=== PATIENT | female | born 1960 | race Caucasian/White ===

== ENCOUNTER → 2016-11-10 | Outpatient (CLI) | payer BC ==
[~2016-11-10] MED LIST: FLUO40CA8 PO; MISCCAP80; TAMS0.4C59 PO
== END ==
LOC: C.PAPS 10:55
PROVIDERS: ATTEND Obstetrics & Gynecology
DX: Z01.419 Encounter for gynecological examination (general) (routine) without abnormal findings (principal)

== ENCOUNTER → 2016-11-10 | Outpatient (CLI) | payer BC ==
--- NOTE | 2016-11-10 13:16 | MAMMOGRAPHY REPORT ---
BILATERAL DIGITAL SCREENING MAMMOGRAM TOMOSYNTHESIS WITH CAD: 11/10/2016 CLINICAL HISTORY: Routine screening. Patient has no complaints. TECHNIQUE: Breast tomosynthesis in addition to standard 2D mammography was performed. Current study was also evaluated with a Computer Aided Detection (CAD) system. COMPARISON: Comparison is made to exams dated: 10/08/2015 mammogram, 09/25/2014 mammogram, 07/11/2013 ma mmogram, 07/05/2012 mammogram, 06/30/2011 mammogram, and 06/23/2010 mammogram - [facility] nter. BREAST COMPOSITION: The tissue of both breasts is almost entirely fatty. FINDINGS: No suspicious masses, calcifications, or areas of architectural distortion are noted in ei ther breast. There has been no significant interval change compared to prior exams. IMPRESSION: ACR BI-RADS CATEGORY 1: NEGATIVE There is no mammographic evidence of malignancy. A 1 year screening mammogram is recommended. The pa tient will receive written notification of the results. Approximately 10% of breast cancers are not detected with mammography. A negative mammographic report should not delay biopsy if a clinically suggestive mass is present. Carmencita Gallagher M.D. ah/:11/10/2016 09:01:42 Research Program Assistant: Susana PATEL(R)(M), [facility] letter sent: Normal 1/2 BI-RADS Code: ACR BI-RADS Category 1: Negative
== END ==
LOC: C.MAMM 07:57
PROVIDERS: ATTEND Obstetrics & Gynecology
DX: Z12.31 Encounter for screening mammogram for malignant neoplasm of breast (principal)

== ENCOUNTER 2022-09-18 11:13 | Observation (INO) ==
[2022-09-18] MEDS ORDERED: ONDANSETRON INJ 2 MG/ML 2 ML VIAL IV STA (11:30)
[2022-09-18] MEDS ORDERED: SODIUM CHLORIDE 0.9% 1000ML 1,000 ML IV ONE (11:30)
[2022-09-18] MEDS ORDERED: MoRPHine SULFATE 4 MG/ML 1 ML CARP\\VIAL IV STA (11:39)
--- NOTE | 2022-09-18 11:39 | Emergency Department Note ---
Impression & Plan Diverticulitis, Abdominal pain ED Provider Note NAME: LUAN Serrano ATCO AGE: 62 SEX: F : 1960 ARRIVES VIA: Walk-In INFORMANT: Patient ED PROVIDER(S): Madhu Hendricks DO CHIEF COMPLAINT: abdominal pain HPI: Patient is a 62-year-old female with past medical history of cholecys tectomy, reflux who presents to the ER for left mid abdominal pain. Associated with nausea and vomiting. She is also having diarrhea. Vomiting stopped last night. Pain started last night around 12 in the morning. She denies any headache or change in vision. No chest pain or shortness of breath. No dysuria, urgency, or frequency. No other exacerbating or remitting factors. She was here back in July for something similar which ended up being diverticulitis. PAST MEDICAL HISTORY:See Below PAST SURGICAL HISTORY:See Below FAMILY HISTORY:See Below SOCIAL HISTORY:See Below HOME MEDICATIONS:See Below ALLERGIES:See Below VITALS:See Below PHYSICAL EXAMINATION: GENERAL: Sitting up in bed, alert, well appearing, well nourished, no distress, non-toxic EYE EXAM: normal conjunctiva. OROPHARYNX: no exudate, no erythema, lips, buccal mucosa, and tongue normal and mucous membranes are moist NECK: supple, no nuchal rigidity, no adenopathy, non-tender LUNGS: Clear to auscultation. Normal chest wall mechanics HEART: no murmurs, S1 normal and S2 normal ABDOMEN: abdomen soft, mild tenderness palpation left mid abdomen, normo-active bowel sounds, no masses, no rebound or guarding. BACK: Back is symmetrical on inspection and there is no deformity, no midline tenderness, no CVA tenderness. SKIN: no rashes and no bruising UPPER EXTREMITIES: upper extremities are grossly normal. LOWER EXTREMITIES: No pitting edema. NEURO EXAM: Normal sensorium, cranial nerves II-XII grossly intact, normal speech, no gross weakness of arms, no gross weakness of legs. MEDICAL DECISION MAKING: Patient is a 60-year-old female who presents ER for above-stated complaint. IV was established blood work was obtained. External records reviewed. Labs show no significant leukocytosis or anemia. BMP along with LFTs bilirubin and lipase is unremarkable. UA was clean. CT abdomen pelvis shows diverticulitis. Patient had persistent abdominal pain following multiple doses of morphine. Patient was given IV fluids and Zofran. Patient was updated at bedside and discharged to follow-up with PCP as an outpatient. Discussed with Pt concerning signs and symptoms to watch out for. Pt was instructed to follow up with their PCP and discussed with the patient their option to return to the ED at anytime for persistent or worsening symptoms. The appropriate anticipatory guidance and out-patient management, including indications for return to the emergency department, were explained at length to the patient and understood. Triage Nursing notes reviewed. Limited review of prior medical records performed Vital Signs: reviewed and remarkable for no significant abnormalities Differential diagnosis: Differential diagnoses includes but is not limited to gastritis, peptic ulcer disease, GERD, gallbladder disease, pancreatitis, small bowel obstruction, appendicitis, diverticulitis, hernia, urinary tract infection, torsion, perforation, trauma, infectious. ER treatment provided: See below Diagnostics interpreted by me include EKG and cardiac monitoring as listed below: -Cardiac Monitoring: An order was placed for continuous cardiac monitoring. The monitor shows a rate of 80 with sinus rhythm. -ECG: none -Laboratory studies:Interpreted by me as stated above in MDM and shown below. Imaging studies: Xrays: As interpreted by me:none CTs show: CT abdomen pelvis showed no obvious obstruction per my read CT abdomen pelvis per radiology showed diverticulitis Consultation(s): As described in MDM Procedures:none Critical Care: None Past Med/Surg History Medical History (Updated 09/18/22 @ 15:59 by Madhu Hendricks DO) Anxiety Deviated septum Dysfunction of eustachian tube History of colon polyps History of kidney stones History of syncope 2018; unk etiology, possibly vasovagal; no issues since (saw cardio Dr. [place]). Loop recorder was planned but patient ultimately decided not to have it placed as she had no further episodes. Hot flashes Hypoperfusion of brain Obesity Perimenopausal vasomotor symptoms Surgical History H/O colonoscopy (08/04/12) COLONOSCOPY FLEXIBLE PROXIMAL DIAGNOSTIC performed by Caprice Campos DO at [facility], HYPERPLASTIC POLYPS REPEAT COLONOSCOPY IN 5 YEARS H/O colonoscopy (01/13/18) diverticulosis, repeat 5 yrs/COLONOSCOPY FLEXIBLE PROXIMAL DIAGNOSTIC performed by Caprice Campos DO at [facility] History of cystoscopy History of endometrial ablation 2009 History of esophagogastroduodenoscopy (EGD) (04/22/20) ESOPHAGOGASTRODUODENOSCOPY (EGD), FLEXIBLE, TRANSORAL, DIAGNOSTIC performed by Rsoa Carrasquillo MD at [facility] With EUS History of knee surgery Lt knee cyst 1992 History of lithotripsy History of removal of ureteral stent History of tonsillectomy and adenoidectomy History of ureter stent S/P laparoscopic cholecystectomy (06/03/20) Laparoscopic Cholecystectomy with Intraoperative Cholangiogram - Angel Abarca MD, FACS Family History Mother Clotting disorder Hypertension Father Prostate cancer History of anesthesia reaction hypotension Aunt Colorectal cancer Cancer Grandmother Diabetes Heart disease Other Bladder cancer Nephrolithiasis, uric acid Social History Smoking Status: Never smoker Second Hand Exposure: No; Do You Dip or Chew Tobacco: No; Hx Alcohol Use: Yes Hx Substance Use: No Preferred Language: Japanese Communication Ability: Effective Physician Anesthesiologist Required: No Beliefs That Will Affect Care: None marital status: Current Living Situation: Spouse Current Living Situation Comment: mother and dtr also live with pt current occupational status: employed 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 How many Children do You have: 2 Feels Safe at Home: Yes Assistive Devices: Contacts and Glasses Allergies Allergies Allergy/AdvReac Type Severity Reaction Status Date / Time adhesive Allergy Mild BANDAIDS - Verified 08/27/22 08:17 RED SKIN Home Meds Home Medications Medication Instructions Recorded Confirmed cholecalciferol (vitamin D3) 50 2,000 units PO HS 08/29/18 09/18/22 mcg (2,000 unit) capsule diclofenac sodium 75 mg 75 mg PO HS 09/08/18 09/18/22 tablet,delayed release alprazolam 0.25 mg tablet 0.25 mg PO DAILY PRN Anxiety 04/25/20 09/18/22 biotin 10 mg tablet 10 mg PO HS 04/25/20 09/18/22 lutein 20 mg tablet 20 mg PO HS 04/25/20 09/18/22 sertraline 100 mg tablet 100 mg PO HS 09/18/22 09/18/22 Results & Data (ED) Vital Signs Vital Signs - 24 hr 09/18/22 11:24 09/18/22 12:08 09/18/22 12:37 Temperature 36.6 C Temperature Source Temporal Artery Scan Pulse Rate 76 65 Pulse Rate [Right Finger] 59 L Pulse Rhythm Regular Pulse Strength Normal Respiratory Rate 18 17 Respiratory Effort / Characteristics Non-Labored Spontaneous Non-Labored Spontaneous Respiratory Depth Normal Normal Respiratory Pattern Regular Blood Pressure 105/73 Blood Pressure [Left Arm] 111/80 Blood Pressure Mean 83 Blood Pressure Mean [Left Arm] 90 Blood Pressure Position Sitting Blood Pressure Position [Left Arm] Lying Pulse Oximetry 96 98 Oxygen Delivery Method Room Air Room Air Sepsis Recent Fever Within 48 Hours No Sepsis New/Unexplained Change in Mental Status No Sepsis Action Taken by Nursing No Action Required 09/18/22 12:37 Temperature Temperature Source Pulse Rate 59 L Pulse Rate [Right Finger] Pulse Rhythm Pulse Strength Respiratory Rate 17 Respiratory Effort / Characteristics Respiratory Depth Respiratory Pattern Blood Pressure Blood Pressure [Left Arm] Blood Pressure Mean Blood Pressure Mean [Left Arm] Blood Pressure Position Blood Pressure Position [Left Arm] Pulse Oximetry 98 Oxygen Delivery Method Room Air Sepsis Recent Fever Within 48 Hours Sepsis New/Unexplained Change in Mental Status Sepsis Action Taken by Nursing Laboratory Data 09/18/22 11:30 09/18/22 11:30 Lab Results 09/18/22 09/18/22 09/18/22 Range/Units 11:30 11:30 12:30 WBC 6.89 (4.8-10.8) K/ul RBC 4.74 (4.20-5.40) M/uL Hgb 14.4 (12.0-16.0) g/dl Hct 41.8 (37.0-47.0) % MCV 88.2 (80.0-100.0) fL MCH 30.4 (25.0-34.0) pg MCHC 34.4 (32.0-36.0) g/dL RDW Std Deviation 43.3 (36.4-46.3) fL RDW Coeff of Bertha 13.2 (11.5-14.5) % Plt Count 303 (130-400) K/uL MPV 10.1 (9.4-12.4) fL Immature Gran % (Auto) 0.3 % Neut % (Auto) 67.9 % Lymph % (Auto) 23.7 % [place] % (Auto) 7.1 % Eos % (Auto) 0.6 % Baso % (Auto) 0.4 % Neut # (Auto) 4.68 (1.40-6.50) K/uL Lymph # (Auto) 1.63 (1.2-3.4) K/uL [place] # (Auto) 0.49 (0.11-0.59) K/uL Eos # (Auto) 0.04 (0-0.50) K/uL Baso # (Auto) 0.03 (0-0.2) K/uL Immature Gran # (Auto) 0.02 (0.01-0.20) K/uL Sodium 141 (136-145) mmol/L Potassium 4.3 (3.5-5.1) mmol/L Chloride 107 (98-107) mmol/L Carbon Dioxide 26 (21-32) mmol/L Anion Gap 8 (3-11) BUN 16 (6-23) mg/dl Creatinine 0.87 (0.6-1.2) mg/dl Est Cr Clr Drug Dosing 69.1 ml/min Est GFR ( Amer) 82.8 ml/min Est GFR (Non-Af Amer) 71.4 ml/min BUN/Creatinine Ratio 18.4 (10-20) Glucose 117 H (70-99(Fasting)) mg/dl Calcium 9.4 (8.6-10.3) mg/dl Total Bilirubin 0.4 (0.2-1.0) mg/dl AST 21 (13-39) U/L ALT 28 (7-52) U/L Alkaline Phosphatase 74 (34-104) U/L Troponin I High Sens (0-14) pg/ml Total Protein 7.1 (6.0-8.3) gm/dl Albumin 4.1 (3.4-5.0) gm/dl Globulin 3.0 (2.5-4.0) gm/dl Albumin/Globulin Ratio 1.4 (0.9-2) Lipase 15 (11-82) U/L Urine Color Yellow Urine Appearance Clear (Clear) Urine pH 7.0 (4.5-7.5) Ur Specific [place] 1.013 (1.000-1.030) Urine Protein Negative (Negative) Urine Glucose (UA) Negative (Negative) Urine Ketones Negative (Negative) Urine Blood Negative (Negative) Urine Nitrite Negative (Negative) Urine Bilirubin Negative (Negative) Urine Urobilinogen Negative (Negative) Ur Leukocyte Esterase Negative (Negative) 09/18/22 Range/Units 14:22 WBC (4.8-10.8) K/ul RBC (4.20-5.40) M/uL Hgb (12.0-16.0) g/dl Hct (37.0-47.0) % MCV (80.0-100.0) fL MCH (25.0-34.0) pg MCHC (32.0-36.0) g/dL RDW Std Deviation (36.4-46.3) fL RDW Coeff of Bertha (11.5-14.5) % Plt Count (130-400) K/uL MPV (9.4-12.4) fL Immature Gran % (Auto) % Neut % (Auto) % Lymph % (Auto) % [place] % (Auto) % Eos % (Auto) % Baso % (Auto) % Neut # (Auto) (1.40-6.50) K/uL Lymph # (Auto) (1.2-3.4) K/uL [place] # (Auto) (0.11-0.59) K/uL Eos # (Auto) (0-0.50) K/uL Baso # (Auto) (0-0.2) K/uL Immature Gran # (Auto) (0.01-0.20) K/uL Sodium (136-145) mmol/L Potassium (3.5-5.1) mmol/L Chloride (98-107) mmol/L Carbon Dioxide (21-32) mmol/L Anion Gap (3-11) BUN (6-23) mg/dl Creatinine (0.6-1.2) mg/dl Est Cr Clr Drug Dosing ml/min Est GFR ( Amer) ml/min Est GFR (Non-Af Amer) ml/min BUN/Creatinine Ratio (10-20) Glucose (70-99(Fasting)) mg/dl Calcium (8.6-10.3) mg/dl Total Bilirubin (0.2-1.0) mg/dl AST (13-39) U/L ALT (7-52) U/L Alkaline Phosphatase (34-104) U/L Troponin I High Sens 3.1 (0-14) pg/ml Total Protein (6.0-8.3) gm/dl Albumin (3.4-5.0) gm/dl Globulin (2.5-4.0) gm/dl Albumin/Globulin Ratio (0.9-2) Lipase (11-82) U/L Urine Color Urine Appearance (Clear) Urine pH (4.5-7.5) Ur Specific [place] (1.000-1.030) Urine Protein (Negative) Urine Glucose (UA) (Negative) Urine Ketones (Negative) Urine Blood (Negative) Urine Nitrite (Negative) Urine Bilirubin (Negative) Urine Urobilinogen (Negative) Ur Leukocyte Esterase (Negative) Administered Medications Famotidine 20 mg/ Syringe 5 mls @ 2.5 mls/min IV BID ERIN Stop: 10/18/22 13:59 Last Admin: 09/18/22 15:07 Dose: 2.5 mls/min Documented By: MUNDO Discontinued Medications Sodium Chloride (Nss 1000ml) 1,000 mls @ 999 mls/hr IV .Q1H1M ONE Stop: 09/18/22 12:30 Last Infusion: 09/18/22 13:43 Dose: 0 mls/hr Documented By: Admin: 09/18/22 11:54 Dose: 999 mls/hr Documented By: MUNDO Piperacillin Sod/Tazobactam Sod (Zosyn) 4.5 gm in 120 mls @ 240 mls/hr IV NOW ONE Stop: 09/18/22 13:54 Last Infusion: 09/18/22 15:22 Dose: 0 mls/hr Documented By: Admin: 09/18/22 14:17 Dose: 240 mls/hr Documented By: MUNDO Ioversol (Optiray 320 100ml) 94 ml IV ONCE ONE Stop: 09/18/22 12:17 Last Admin: 09/18/22 12:16 Dose: 94 ml Documented By: RASHIDA Morphine Sulfate (Morphine Sulfate 4 Mg/Ml 1 Ml Carp\Vial) 4 mg IV NOW STA Stop: 09/18/22 11:40 Last Admin: 09/18/22 11:53 Dose: 4 mg Documented By: MUNDO Morphine Sulfate (Morphine Sulfate 10 Mg/Ml Carp/Vial) 6 mg IV NOW STA Stop: 09/18/22 13:00 Last Admin: 09/18/22 13:14 Dose: 6 mg Documented By: MUNDO Ondansetron HCl (Ondansetron Inj 2 Mg/Ml 2 Ml Vial) 4 mg IV NOW STA Stop: 09/18/22 11:31 Last Admin: 09/18/22 11:54 Dose: 4 mg Documented By: [facility] Imaging Data Radiologist's Impression: Abdomen/Pelvis CT 09/18/22 11:[address] WITH IV CONTRAST CT DOSE: 1315.43 mGy.cm HISTORY: l mid abd pain going to back TECHNIQUE: Multiaxial CT images of the abdomen and pelvis were performed following the use of intravenous contrast. A dose lowering technique was u tilized adhering to the principles of ALARA. COMPARISON STUDY: Abdomen and pelvis CT 07/27/2022. FINDINGS: Punctate calcified granuloma within the left lower lobe. No pneumoperitoneum. No pneumatosis. No acute fractures identified. There is a tiny hiatus hernia. There is a tiny fat-containing umbilical hernia. Cholecystectomy. The main portal vein is patent. The liver, spleen, adrenal glands, and pancreas are unremarkable. There is a punctate stone within the right kidney. Stable left renal hypodense lesions. These favor cysts. No hydronephrosis. No retroperitoneal lymphadenopathy. There is a duplicated IVC. No pelvic free fluid or pelvic lymphadenopathy. The bladder, uterus, and bilateral adnexa are unremarkable. Tiny fat-containing umbilical hernias are noted. Colonic diverticulosis. Mild fat stranding adjacent to a single diverticula within the proximal sigmoid colon on image 258. This is consistent with a mild acute diverticulitis. No perforation or abscess identified. No evidence for bowel obstruction. Normal appendix. IMPRESSION: 1. Mild acute sigmoid diverticulitis. No perforation or abscess. 2. Right-sided nephrolithiasis. No ureteral stones. No hydronephrosis. 3. Normal appendix. 4. Cholecystectomy. ACT 112: Negative or not required by law. Electronically signed by: Miguel Jimenez M.D. 09/18/2022 1:16 PM Discharge Plan Visit Data Chief Complaint: Abdominal Pain Stated Complaint: ABD PAIN RADIATING IN BACK ED Provider: Madhu Hendricks Discharge Problem: Diverticulitis, Abdominal pain Forms Stand Alone Forms: [email or web address] Prescriptions Prescriptions: No Action alprazolam 0.25 mg tablet 0.25 mg PO DAILY PRN (Reason: Anxiety) lutein 20 mg tablet 20 mg PO HS Rx Instructions: give with meal/snack biotin 10 mg tablet 10 mg PO HS cholecalciferol (vitamin D3) 2,000 unit capsule 2,000 units PO HS diclofenac sodium 75 mg tablet,delayed release (DR/EC) 75 mg PO HS sertraline 100 mg tablet 100 mg PO HS Referrals Referrals: Cecilia Fried DO [Primary Care Provider] -
[2022-09-18 12:02] LABS: Basophils # (auto) 0.03 K/uL (0-0.2); Basophils % (auto) 0.4 %; Eosinophils # (auto) 0.04 K/uL (0-0.50); Eosinophils % (auto) 0.6 %; Hematocrit (blood only) 41.8 % (37.0-47.0); Hemoglobin 14.4 g/dl (12.0-16.0); Immature Granulocytes # (auto) 0.02 K/uL (0.01-0.20); Immature Granulocytes % (auto) 0.3 %; Lymphocytes # (auto) 1.63 K/uL (1.2-3.4); Lymphocytes % (auto) 23.7 %; Mean Corpuscular Hemoglobin 30.4 pg (25.0-34.0); Mean Corpuscular Hgb Conc 34.4 g/dL (32.0-36.0); Mean Corpuscular Volume 88.2 fL (80.0-100.0); Mean Platelet Volume 10.1 fL (9.4-12.4); Monocytes # (auto) 0.49 K/uL (0.11-0.59); Monocytes % (auto) 7.1 %; Neutrophils # (auto) 4.68 K/uL (1.40-6.50); Neutrophils % (auto) 67.9 %; Platelet Count 303 K/uL (130-400); RDW Coefficient of Variation 13.2 % (11.5-14.5); RDW Standard Deviation 43.3 fL (36.4-46.3); Red Blood Count 4.74 M/uL (4.20-5.40); White Blood Count 6.89 K/ul (4.8-10.8)
[2022-09-18 12:15] LABS: Albumin Globulin Ratio 1.4 (0.9-2); Albumin Level 4.1 gm/dl (3.4-5.0); BUN Creatinine Ratio 18.4 (10-20); Bilirubin,Total 0.4 mg/dl (0.2-1.0); Calcium 9.4 mg/dl (8.6-10.3); Creatinine Clr Calc Pharmacy 69.1 ml/min; Est GFR (African American) 82.8 ml/min; Est GFR (Non-African American) 71.4 ml/min; Potassium 4.3 mmol/L (3.5-5.1); Total Protein 7.1 gm/dl (6.0-8.3)
[2022-09-18] MEDS ORDERED: OPTIRAY 320 100ml IV ONE (12:16)
[2022-09-18 12:48] LABS: Appearance Urine Clear (Clear); Bilirubin Urine Negative (Negative); Blood Urine Negative (Negative); Color Urine Yellow; Glucose Urine UA Negative (Negative); Ketones Urine Negative (Negative); Leukocyte Esterase Urine Negative (Negative); Nitrite Urine Negative (Negative); Protein Urine Negative (Negative); Specific Gravity Urine 1.013 (1.000-1.030); Urobilinogen Urine Negative (Negative)
[2022-09-18] MEDS ORDERED: MoRPHine SULFATE 10 MG/ML CARP/VIAL IV STA ×2 (12:59→13:24)
--- NOTE | 2022-09-18 13:18 | CT Scan Report ---
ABDOMEN AND PELVIS CT WITH IV CONTRAST CT DOSE: 1315.43 mGy.cm HISTORY: l mid abd pain going to back TECHNIQUE: Multiaxial CT images of the abdomen and pelvis were performed following the use of intrave nous contrast. A dose lowering technique was utilized adhering to the principles of ALARA. COMPARISON STUDY: Abdomen and pelvis CT 07/27/2022. FINDINGS: Punctate calcified granuloma within the left lower lobe. No pneumoperitoneum. No pneumatosi s. No acute fractures identified. There is a tiny hiatus hernia. There is a tiny fat-containing umbil ical hernia. Cholecystectomy. The main portal vein is patent. The liver, spleen, adrenal glands, and pancreas are unremarkable. There is a punctate stone within the right kidney. Stable left renal hypod ense lesions. These favor cysts. No hydronephrosis. No retroperitoneal lymphadenopathy. There is a du plicated IVC. No pelvic free fluid or pelvic lymphadenopathy. The bladder, uterus, and bilateral adne xa are unremarkable. Tiny fat-containing umbilical hernias are noted. Colonic diverticulosis. Mild fa t stranding adjacent to a single diverticula within the proximal sigmoid colon on image 258. This is consistent with a mild acute diverticulitis. No perforation or abscess identified. No evidence for galdino wel obstruction. Normal appendix. IMPRESSION: 1. Mild acute sigmoid diverticulitis. No perforation or abscess. 2. Right-sided nephrolithiasis. No ureteral stones. No hydronephrosis. 3. Normal appendix. 4. Cholecystectomy. ACT 112: Negative or not required by law. Electronically signed by: Miguel Jimenez M.D. 09/18/2022 1:16 PM
[2022-09-18] MEDS ORDERED: PIPERACILLIN/TAZOBACTAM 4.5 GM/120 ML BAG IV ONE (13:25)
--- NOTE | 2022-09-18 13:51 | History & Physical Report ---
Date of Service September 18, 2022 Assessment & Plan (1) Sigmoid diverticulitis: (2) Esophageal reflux: (3) Anxiety: (4) Sleep apnea: Plan This is a 62yo with PMH of diverticulitis, anxiety and other medical problems who presents after sudden onset of severe left sided abdomen and was found to have mild acute sigmoid diverticulitis. Acute sigmoid diverticulitis N/V and left sided abdominal pain since midnight Previous bout of diverticulitis in July 2022, treated with PO abx Afebrile, hemodynamically stable, no leukocytosis, no acute bleeding with hgb 14.4 CT abd/pelvis with mild acute sigmoid diverticulitis. No perforation or abscess. Right-sided nephrolithiasis. No ureteral stones. No hydronephrosis. Normal appendix. Cholecystectomy Started on Zosyn, continue for now Clear liquids, antiemetics, pain control, adding stool cultures and c diff Epigastric discomfort Upper abdominal pain extending to chest wall Lipase WNL Expect GI related, adding pepcid BID EKG and troponin pending to rule out cardiac cause Anxiety Continue Zoloft HS DVT Ppx: SQ lovenox Code status: FULL PCP: Corky Dispo:Observation med/surg Patient seen in collaboration with Dr. Cheung. Please see addendum. History of Present Illness Chief Complaint: abd pain, N/V Primary Care Provider: Cecilia Fried, DO This is a 62yo with PMH of diverticulitis, anxiety and other medical problems who presents after sudden onset of severe left sided abdomen that woke her up around midnight. Describes pain as sharp and constant left sided pain radiating into back and shoulder with associated nausea. Feels like pain may be due to gas. Also with associated nausea. Vomited at home prior to arrival even after taking Zofran. No hematemesis. No additional vomiting since arrival and symptoms improved with morphine in ED. Had multiple bouts of diarrhea between midnight and presentation but seems have stopped now. No hematochezia. No F,C, lightheadedness, SOB, dysuria or constipation. Has been under a lot of stress caring for her elderly mother. Recently had bout of diverticulitis but resolved with outpatient antibiotics. Pain more severe this time. No recent medication changes. Allergies Allergy/AdvReac Type Severity Reaction Status Date / Time adhesive Allergy Mild BANDAIDS - Verified 08/27/22 08:17 RED SKIN Home Medications Medication Instructions Recorded Confirmed Type cholecalciferol (vitamin D3) 50 2,000 units PO HS 08/29/18 09/18/22 History mcg (2,000 unit) capsule diclofenac sodium 75 mg 75 mg PO HS 09/08/18 09/18/22 History tablet,delayed release alprazolam 0.25 mg tablet 0.25 mg PO DAILY PRN Anxiety 04/25/20 09/18/22 History biotin 10 mg tablet 10 mg PO HS 04/25/20 09/18/22 History lutein 20 mg tablet 20 mg PO HS 04/25/20 09/18/22 History sertraline 100 mg tablet 100 mg PO HS 09/18/22 09/18/22 History Past Med/Surg History Medical History (Updated 09/18/22 @ 14:36 by Elena Sol PA-C) Anxiety Deviated septum Dysfunction of eustachian tube History of colon polyps History of kidney stones History of syncope 2018; unk etiology, possibly vasovagal; no issues since (saw cardio Dr. London). Loop recorder was planned but patient ultimately decided not to have it placed as she had no further episodes. Hot flashes Hypoperfusion of brain Obesity Perimenopausal vasomotor symptoms Surgical History H/O colonoscopy (08/04/12) COLONOSCOPY FLEXIBLE PROXIMAL DIAGNOSTIC performed by Caprice Campos DO at [facility], HYPERPLASTIC POLYPS REPEAT COLONOSCOPY IN 5 YEARS H/O colonoscopy (01/13/18) diverticulosis, repeat 5 yrs/COLONOSCOPY FLEXIBLE PROXIMAL DIAGNOSTIC performed by Caprice Campos DO at [facility] History of cystoscopy History of endometrial ablation 2009 History of esophagogastroduodenoscopy (EGD) (04/22/20) ESOPHAGOGASTRODUODENOSCOPY (EGD), FLEXIBLE, TRANSORAL, DIAGNOSTIC performed by Rosa Carrasquillo MD at [facility] With EUS History of knee surgery Lt knee cyst 1992 History of lithotripsy History of removal of ureteral stent History of tonsillectomy and adenoidectomy History of ureter stent S/P laparoscopic cholecystectomy (06/03/20) Laparoscopic Cholecystectomy with Intraoperative Cholangiogram - Angel Abarca MD, FACS Family History Mother Clotting disorder Hypertension Father Prostate cancer History of anesthesia reaction hypotension Aunt Colorectal cancer Cancer Grandmother Diabetes Heart disease Other Bladder cancer Nephrolithiasis, uric acid Social History Smoking Status: Never smoker Second Hand Exposure: No; Do You Dip or Chew Tobacco: No; Hx Alcohol Use: Yes Hx Substance Use: No Preferred Language: Macanese Communication Ability: Effective Heavy Cleaner Required: No Beliefs That Will Affect Care: None marital status: Current Living Situation: Spouse Current Living Situation Comment: mother and dtr also live with pt current occupational status: employed 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 Physical Exam Physical Exam: Please see Dr. Cheung for physical exam. Results & Data Results & Data Vital Signs (Past 12 Hours) Vital Signs Temp Pulse Pulse Resp BP BP Pulse Ox 09/18/22 12:37 59 L 17 98 09/18/22 12:37 59 L 17 111/80 98 09/18/22 12:08 65 09/18/22 11:24 36.6 C 76 18 105/73 96 O2 Del Method 09/18/22 12:37 Room Air 09/18/22 12:37 Room Air 09/18/22 12:08 09/18/22 11:24 Room Air Laboratory Results Short CBC 09/18/22 Range/Units 11:30 WBC 6.89 (4.8-10.8) K/ul Hgb 14.4 (12.0-16.0) g/dl Hct 41.8 (37.0-47.0) % Plt Count 303 (130-400) K/uL BMP 09/18/22 11:30 Sodium 141 Potassium 4.3 Chloride 107 Carbon Dioxide 26 BUN 16 Creatinine 0.87 Glucose 117 H Calcium 9.4 Liver Function 09/18/22 Range/Units 11:30 Total Bilirubin 0.4 (0.2-1.0) mg/dl AST 21 (13-39) U/L ALT 28 (7-52) U/L Alkaline Phosphatase 74 (34-104) U/L Albumin 4.1 (3.4-5.0) gm/dl Urine 09/18/22 Range/Units 12:30 Urine Color Yellow Urine Appearance Clear (Clear) Urine pH 7.0 (4.5-7.5) Ur Specific [place] 1.013 (1.000-1.030) Urine Protein Negative (Negative) Urine Glucose (UA) Negative (Negative) Diagnostic Findings Abdomen/Pelvis CT 09/18/22 11:[address] WITH IV CONTRAST CT DOSE: 1315.43 mGy.cm HISTORY: l mid abd pain going to back TECHNIQUE: Multiaxial CT images of the abdomen and pelvis were performed following the use of intravenous contrast. A dose lowering technique was utilized adhering to the principles of ALARA. COMPARISON STUDY: Abdomen and pelvis CT 07/27/2022. FINDINGS: Punctate calcified granuloma within the left lower lobe. No pneumoperitoneum. No pneumatosis. No acute fractures identified. There is a tiny hiatus hernia. There is a tiny fat-containing umbilical hernia. Cholecystectomy. The main portal vein is patent. The liver, spleen, adrenal glands, and pancreas are unremarkable. There is a punctate stone within the right kidney. Stable left renal hypodense lesions. These favor cysts. No hydronephrosis. No retroperitoneal lymphadenopathy. There is a duplicated IVC. No pelvic free fluid or pelvic lymphadenopathy. The bladder, uterus, and bilateral adnexa are unremarkable. Tiny fat-containing umbilical hernias are noted. Colonic diverticulosis. Mild fat stranding adjacent to a single diverticula within the proximal sigmoid colon on image 258. This is consistent with a mild acute diverticulitis. No perforation or abscess identified. No evidence for bowel obstruction. Normal appendix. IMPRESSION: 1. Mild acute sigmoid diverticulitis. No perforation or abscess. 2. Right-sided nephrolithiasis. No ureteral stones. No hydronephrosis. 3. Normal appendix. 4. Cholecystectomy. ACT 112: Negative or not required by law. Electronically signed by: Miguel Jimenez M.D. 09/18/2022 1:16 PM Supervising Physician Co-Signing Physician Notes Pt is a 62 y/o F with hx of Anxiety, hx of colonic polyp, diverticulitis admitted for acute diverticulitis. PE: NAD, well developed Lungs: CTA, no wheezing or crackles Cardiac: normal S1/S2, no murmur Abd: ND, soft, Mild TTP of the epigastric area MSK: No LE edema Psych: AAOx3, normal affect A/P: Acute diverticulitis: -will continue pt on zosyn -CT abd showed no acute perforation -will start pt on clear diet -zofran, morphine and Pepcid prn -likely discharge brenda on oral abx Agree with A/P by Elena Sol PA-C
[2022-09-18] MEDS ORDERED: ALPRAZolam 0.25 MG TABLET PO PRN (13:54)
[2022-09-18] MEDS: FAMOTIDINE 20 MG in SYRINGE 3 ML IV SCH ×2 (15:07→20:16)
[2022-09-18] MEDS ORDERED: MoRPHine SULFATE 2 MG/ML CARP IV PRN (16:54)
[2022-09-18] MEDS ORDERED: ACETAMINOPHEN 325 MG TAB PO PRN (16:54)
[2022-09-18] MEDS ORDERED: ONDANSETRON INJ 2 MG/ML 2 ML VIAL IV PRN (16:54)
[2022-09-18] MEDS ORDERED: ENOXAPARIN INJ 40 MG/0.4 ML SYR SQ SCH (17:00)
[2022-09-18] MEDS: PIPERACILLIN/TAZOBACTAM 4.5 GM in DEXTROSE 5% 100 ML IV SCH (20:15)
[2022-09-18] MEDS ORDERED: SERTRALINE HCL 100 MG TABLET PO SCH (21:00)
[2022-09-18] MEDS ORDERED: CHOLECALCIFEROL 1,000 UNITS 25 MCG TAB PO SCH (21:00)
[2022-09-19] MEDS: PIPERACILLIN/TAZOBACTAM 4.5 GM in DEXTROSE 5% 100 ML IV SCH ×2 (04:17→12:30)
[2022-09-19 06:14] LABS: Hematocrit (blood only) 40.7 % (37.0-47.0); Hemoglobin 13.5 g/dl (12.0-16.0); Mean Corpuscular Hemoglobin 29.9 pg (25.0-34.0); Mean Corpuscular Hgb Conc 33.2 g/dL (32.0-36.0); Mean Corpuscular Volume 90.2 fL (80.0-100.0); Platelet Count 250 K/uL (130-400); RDW Coefficient of Variation 13.4 % (11.5-14.5); RDW Standard Deviation 44.1 fL (36.4-46.3); Red Blood Count 4.51 M/uL (4.20-5.40); White Blood Count 5.23 K/ul (4.8-10.8)
[2022-09-19 06:30] LABS: BUN Creatinine Ratio 9.3 (10-20); Calcium 8.9 mg/dl (8.6-10.3); Creatinine Clr Calc Pharmacy 62.1 ml/min; Est GFR (African American) 72.5 ml/min; Est GFR (Non-African American) 62.6 ml/min; Potassium 4.2 mmol/L (3.5-5.1)
[2022-09-19 09:46] LABS: Estimated Average Glucose 123 mg/dl; Hemoglobin A1C 5.9 % (4.5-5.6)
[2022-09-19] MEDS ORDERED: SODIUM CHLORIDE 0.9% 1000ML 1,000 ML IV ONE (09:50)
--- NOTE | 2022-09-19 09:50 | Hospitalist Progress Note ---
Date of Service September 19, 2022 Assessment & Plan (1) Sigmoid diverticulitis: (2) Esophageal reflux: (3) Anxiety: (4) Sleep apnea: Plan This is a 62yo with PMH of diverticulitis, anxiety and other medical problems who presents after sudden onset of severe left sided abdomen and was found to have mild acute sigmoid diverticulitis. Acute sigmoid diverticulitis N/V and left sided abdominal pain since midnight Previous bout of diverticulitis in July 2022, treated with PO abx Afebrile, hemodynamically stable, no leukocytosis, no acute bleeding with hgb 14.4 CT abd/pelvis with mild acute sigmoid diverticulitis. No perforation or abscess. Right-sided nephrolithiasis. No ureteral stones. No hydronephrosis. Normal appendix. Cholecystectomy Started on Zosyn, continue for now Clear liquids, antiemetics, pain control, adding stool cultures and c diff Epigastric discomfort Upper abdominal pain extending to chest wall Lipase WNL Expect GI related, adding pepcid BID EKG and troponin pending to rule out cardiac cause Anxiety Continue Zoloft HS DVT Ppx: SQ lovenox Code status: FULL PCP: Corky Dispo:Observation med/surg Patient seen in collaboration with Dr. Cheung. Please see addendum. Admission and Anticipated Discharge Date Admission Date: September 18, 2022 Results & Data Results & Data Vital Signs (Past 12 Hours) Vital Signs Temp Pulse Resp BP Pulse Ox O2 Del Method 09/19/22 07:00 36.4 C L 62 15 95/63 L 95 Room Air 09/18/22 23:17 75 94/60 L Laboratory Results Short CBC 09/18/22 09/19/22 Range/Units 11:30 05:51 WBC 6.89 5.23 (4.8-10.8) K/ul Hgb 14.4 13.5 (12.0-16.0) g/dl Hct 41.8 40.7 (37.0-47.0) % Plt Count 303 250 (130-400) K/uL BMP 09/18/22 09/19/22 11:30 05:51 Sodium 141 140 Potassium 4.3 4.2 Chloride 107 106 Carbon Dioxide 26 29 BUN 16 9 Creatinine 0.87 0.97 Glucose 117 H 117 H Calcium 9.4 8.9 Liver Function 09/18/22 Range/Units 11:30 Total Bilirubin 0.4 (0.2-1.0) mg/dl AST 21 (13-39) U/L ALT 28 (7-52) U/L Alkaline Phosphatase 74 (34-104) U/L Albumin 4.1 (3.4-5.0) gm/dl Urine 09/18/22 Range/Units 12:30 Urine Color Yellow Urine Appearance Clear (Clear) Urine pH 7.0 (4.5-7.5) Ur Specific [place] 1.013 (1.000-1.030) Urine Protein Negative (Negative) Urine Glucose (UA) Negative (Negative) Medications Administered Current Inpatient Medications Acetaminophen (Acetaminophen 325 Mg Tab) 650 mg PO Q4H PRN PRN Reason: pain/fever Stop: 10/18/22 16:53 Alprazolam (Alprazolam 0.25 Mg Tablet) 0.25 mg PO DAILY PRN PRN Reason: Anxiety Stop: 10/18/22 13:53 Enoxaparin Sodium (Enoxaparin Inj 40 Mg/0.4 Ml Syr) 40 mg SQ Q24H ERIN Stop: 10/18/22 16:59 Last Admin: 09/18/22 17:47 Dose: Not Given Famotidine 20 mg/ Syringe 5 mls @ 2.5 mls/min IV BID ERIN Stop: 10/18/22 13:59 Last Admin: 09/18/22 20:16 Dose: 2.5 mls/min Piperacillin Sod/Tazobactam (Sod 4.5 gm/ Dextrose) 120 mls @ 30 mls/hr IV Q8H ERIN Stop: 09/28/22 19:59 Last Infusion: 09/19/22 08:29 Dose: Infused Sodium Chloride (Nss 1000ml) 1,000 mls @ 999 mls/hr IV .Q1H1M ONE Stop: 09/19/22 10:50 Morphine Sulfate (Morphine Sulfate 2 Mg/Ml Carp) 2 mg IV Q4H PRN PRN Reason: Pain Stop: 10/02/22 16:53 Ondansetron HCl (Ondansetron Inj 2 Mg/Ml 2 Ml Vial) 4 mg IV Q6H PRN PRN Reason: Nausea Stop: 10/18/22 16:53 Sertraline HCl (Sertraline Hcl 100 Mg Tablet) 100 mg PO HS ERIN Stop: 10/18/22 20:59 Last Admin: 09/18/22 20:16 Dose: 100 mg Vitamin D (Cholecalciferol 1,000 Units 25 Mcg Tab) 2,000 units PO HS ERNI Stop: 10/18/22 20:59 Last Admin: 09/18/22 20:16 Dose: 2,000 units
[2022-09-19] MEDS: FAMOTIDINE 20 MG in SYRINGE 3 ML IV SCH (09:52)
--- NOTE | 2022-09-19 11:25 | Electrocardiogram Report ---
Test Reason : Blood Pressure : / mmHG Vent. Rate : 066 BPM Atrial Rate : 066 BPM P-R Int : 126 ms QRS Dur : 080 ms QT Int : 446 ms P-R-T Axes : 032 -11 041 degrees QTc Int : 467 ms Poor data quality, interpretation may be adversely affected Normal sinus rhythm with sinus arrhythmia Inferior infarct , age undetermined Abnormal ECG When compared with ECG of 27-JUL-2022 06:30, Premature ventricular complexes are no longer Present Confirmed by Tyrese Cosby ([id number]) on 09/19/2022 11:25:30 AM Referred By: REFERRED SELF Confirmed By:Tyrese Cosby
--- NOTE | 2022-09-19 13:10 | Discharge Summary ---
Discharge Summary Date of Service September 19, 2022 Notes For Next Care Provider cont lifestyle changes to reduce BMI and change diet in effort to avoid additional flares of diverticulitis cont high fiber diet Medication Changes From Visit Augmentin x 10 days Admission HPI Per Admitting Provider This is a 62yo with PMH of diverticulitis, anxiety and other medical problems who presents after sudden onset of severe left sided abdomen that woke her up around midnight. Describes pain as sharp and constant left sided pain radiating into back and shoulder with associated nausea. Feels like pain may be due to gas. Also with associated nausea. Vomited at home prior to arrival even after taking Zofran. No hematemesis. No additional vomiting since arrival and symptoms improved with morphine in ED. Had multiple bouts of diarrhea between midnight and presentation but seems have stopped now. No hematochezia. No F,C, lightheadedness, SOB, dysuria or constipation. Has been under a lot of stress caring for her elderly mother. Recently had bout of diverticulitis but resolved with outpatient antibiotics. Pain more severe this time. No recent medication changes. Principal Dx & Hospital Course #1 = Principal Diagnosis (1) Sigmoid diverticulitis: (2) Esophageal reflux: (3) Anxiety: (4) Sleep apnea: (5) Morbid obesity: Plan Patient is a 62-year-old female with a history of diverticulitis in July who presents again with abdominal pain nausea and vomiting. She also reported diarrhea. Work-up in the ER revealed no significant leukocytosis or anemia and BMP along with LFTs bilirubin and lipase were unremarkable. UA was clear of infection. CT of the abdomen pelvis revealed diverticulitis. Her pain did persist after multiple doses of morphine and she was given IV fluids and Zofran. She was admitted to medicine and continued on Zosyn. The following day she improved and was tolerating p.o. She reported no abdominal pain fever or chills. She was ambulating independently in the room and was eager to return home. We reviewed that she had been given Cipro and Flagyl during her July episode of diverticulitis and she would prefer Augmentin at this time. That was provided into her pharmacy. I also counseled her on risk factors associated with diverticulitis including obesity, and diets high in red meats, heavy alcohol, and high fats. She did mention she had been eating differently this week including red meats and had a glass of wine. Continue lifestyle modifications to decrease overall percent body fat and increase lean muscle mass. BMI currently 33.1. Discharged in stable condition with close primary care follow-up recommended. Updated Medication List Medication Instructions Recorded Confirmed Type cholecalciferol (vitamin D3) 50 2,000 units PO HS 08/29/18 09/18/22 History mcg (2,000 unit) capsule diclofenac sodium 75 mg 75 mg PO HS 09/08/18 09/18/22 History tablet,delayed release alprazolam 0.25 mg tablet 0.25 mg PO DAILY PRN Anxiety 04/25/20 09/18/22 History biotin 10 mg tablet 10 mg PO HS 04/25/20 09/18/22 History lutein 20 mg tablet 20 mg PO HS 04/25/20 09/18/22 History sertraline 100 mg tablet 100 mg PO HS 09/18/22 09/18/22 History amoxicillin 875 mg-potassium 1 tab PO BID #20 tabs 09/19/22 Rx clavulanate 125 mg tablet Hospital Stay Data Consultations 09/18/22 13:25 ED Decision to Admit Stat Diagnostic Imagining Performed 09/18/22 11:39 CT Abd and Pelvis [CT abd pelvis IV con only] Stat Pending Results Patient Have Any Pending Studies at Discharge: No Discharge Instructions Given to Patient (Per Discharging Provider) Please take all medications as instructed on discharge as below. It is recommended that you follow-up with your primary care doctor within 1 week of discharge from the hospital to ensure you are doing well and tolerating the medication provided. It is a good idea to eat a lot of fiber after your symptoms of gotten better. Good sources of fiber include fruits, oats, beans, peas, and green leafy vegetables. You do not need to avoid seeds, nuts, popcorn or other similar foods. Physical activity decreases the risk of diverticulitis and obesity is a strong risk factor for diverticulitis. Smoking and heavy alcohol use is also been associated with diverticulitis. As discussed dietary factors that increase the risk of diverticulitis include high intake of red meat alone and a Western dietary pattern that is high in red meat, fat and refined grains. It was a pleasure taking care of you! Please call if you have any questions or problems. You can reach a [facility] hospitalist on duty at [facility] 24 hours a day by calling [phone]. Take care of yourself. DO Guillermo [facility] Hospitalist Total Time Total Time Spent Total Time Spent (In Minutes): 60
== END 2022-09-19 14:50 | disposition home or self-care (01) ==
LOC: ED 11:13 → 3N 11:13 → SUATTDRO 15:17 → 3N 17:06